=== PATIENT | female | born 1980 | race Caucasian/White ===

== ENCOUNTER 2017-01-04 17:30 | Emergency (ER) | payer OTHER ==
[2017-01-04 17:56] VITALS: O2SAT 100
--- NOTE | 2017-01-04 19:21 | C.PDOC ---
History Of Present Illness A 36 y/o female presents to the ER c/o bruising of the bilateral thighs and back for a couple days. Pt notes it as a dull aching discomfort that is 3/10. Bruising is on the back and is larger on the right thigh. Pt denies trauma, fever, chills, nausea, vomiting, or any other complaints. Pt denies the use of anticoagulants. Time Seen by Provider: 01/04/17 19:20 Chief Complaint (Nursing): Abnormal Skin Integrity History Per: Patient History/Exam Limitations: no limitations Onset/Duration Of Symptoms: Days Current Symptoms Are (Timing): Still Present Location Of Injury: Right: Thigh (Bruising), Left: Thigh, Posterior: Back ( Bruising) Quality Of Symptoms: Other (Dull aching discomfort) Severity: Mild Pain Scale Rating Of: 3 Recent travel outside of the [place]: No Additional History Per: Patient Past Medical History Reviewed: Historical Data, Nursing Documentation, Vital Signs Vital Signs: Last Vital Signs Temp 98.4 F 01/04/17 17:53 Pulse 66 01/04/17 17:53 Resp 18 01/04/17 17:53 BP 128/72 01/04/17 17:53 Pulse Ox 100 01/04/17 19:44 Family History: States: Unknown Family Hx - Social History Hx Alcohol Use: No Hx Substance Use: No - Immunization History Hx Tetanus Toxoid Vaccination: Yes Hx Influenza Vaccination: No Hx Pneumococcal Vaccination: No Review Of Systems Except As Marked, All Systems Reviewed And Found Negative. Constitutional: Negative for: Fever, Chills, Other (Trauma) Eyes: Negative for: Redness ENT: Negative for: Throat Pain Cardiovascular: Negative for: Chest Pain Respiratory: Negative for: Shortness of Breath Gastrointestinal: Negative for: Nausea, Vomiting Skin: Positive for: Bruising (Bilateral thighs and back) Neurological: Negative for: Weakness Psych: Negative for: Anxiety Physical Exam - Physical Exam Appears: Non-toxic, No Acute Distress Skin: Warm, Dry, Ecchymosis (3X4 cm ecchymosis left thigh. 2X3 cm ecchymosis anterior right thight. Smaller bruising on the back) Head: Atraumatic Eye(s): bilateral: Normal Inspection Oral Mucosa: Moist Throat: No Erythema Neck: Supple Chest: Symmetrical Cardiovascular: Rhythm Regular, No Murmur Respiratory: No Rales, No Rhonchi, No Wheezing Gastrointestinal/Abdominal: Soft, No Tenderness Back: Normal Inspection Extremity: Normal ROM, Other (bruises both thights) Extremity: Bilateral: Normal Color And Temperature, Normal ROM Neurological/Psych: Oriented x3, Normal Speech, Normal Cognition, Other (No focal deficit) Gait: Steady ED Course And Treatment - Laboratory Results Result Diagrams: 01/04/17 19:55 01/04/17 19:55 O2 Sat by Pulse Oximetry: 100 (RA) Pulse Ox Interpretation: Normal Medical Decision Making Medical Decision Making: Upon provider reevaluation patient is feeling better, is medically stable, and requires no further treatment in the ED at this time. Patient will be discharged home with. Counseling was provided and all questions were answered regarding diagnosis and need for follow up with the referred clinic. There is agreement to discharge plan. Return if symptoms persist or worsen. Disposition Counseled Patient/Family Regarding: Studies Performed, Diagnosis, Need For Followup - Disposition Referrals: [facility] at [facility] [Outside] [facility] [Outside] Disposition: HOME/ ROUTINE Disposition Time: 19:21 Condition: FAIR Additional Instructions: Please return if symptoms recur Instructions: Contusion in Adults (DC) Print Language: TONGAN - Clinical Impression Clinical Impression: Ecchymosis - Scribe Statement The provider has reviewed the documentation as recorded by the Scribnitesh gregg All medical record entries made by the Austinibnitesh were at my direction and personally dictated by me. I have reviewed the chart and agree that the record accurately reflects my personal performance of the history, physical exam, medical decision making, and the department course for this patient. I have also personally directed, reviewed, and agree with the discharge instructions and disposition.
[2017-01-04 19:59] LABS: BASO # 0.1 K/uL (0.0-0.2); BASO % 0.6 % (0.0-2.0); EOS # 0.2 K/uL (0.0-0.7); EOS % 2.4 % (0.0-4.0); HEMATOCRIT 40.4 % (34.0-47.0); LYMPH # 2.5 K/uL (1.0-4.3); LYMPH % 25.7 % (20.0-40.0); MEAN CELL VOLUME 95.7 fL (81.0-99.0); MEAN CORPUSCULAR HGB CONC 33.4 g/dL (33.0-37.0); MEAN PLATELET VOLUME 7.6 fL (7.2-11.7); MONO # 0.8 K/uL (0.0-0.8); MONO % 7.8 % (0.0-10.0); RED CELL DISTRIBUTION WIDTH 13.1 % (11.5-14.5); WHITE BLOOD COUNT 9.7 K/uL (4.8-10.8)
[2017-01-04 20:08] LABS: CHLORIDE 101 mmol/L (98-107); POTASSIUM 3.9 mmol/L (3.6-5.2); SODIUM 139 mmol/L (132-148)
[2017-01-04 20:10] LABS: ALB/GLOB RATIO 1.3 (1.0-2.1); AST/SGOT 23 U/L (14-36); BILIRUBIN,TOTAL 0.6 mg/dL (0.2-1.3); CARBON DIOXIDE 26 mmol/L (22-30); GFR AFRICAN-AMERICAN > 60; TOTAL PROTEIN 7.9 g/dL (6.3-8.3)
[2017-01-04 20:11] LABS: ALKALINE PHOSPHATASE 61 U/L (38-126); ALT/SGPT 27 U/L (9-52); BLOOD UREA NITROGEN 10 mg/dL (7-17); CALCIUM 8.8 mg/dl (8.6-10.4); GLUCOSE,RANDOM 101 mg/dL (65-105)
[2017-01-04 21:06] VITALS: BP 111/75; PULSE 76; RESP 20; TEMP 99
== END 2017-01-04 21:24 | disposition home or self-care (01) ==
LOC: C.ER 17:30
DX: R23.3 Spontaneous ecchymoses (principal)

== ENCOUNTER 2017-03-07 06:00 | Emergency (ER) | payer OTHER ==
[2017-03-07 06:22] VITALS: O2SAT 100
[2017-03-07 07:14] LABS: HCG,QUALITATIVE URINE NEGATIVE (NEGATIVE)
[2017-03-07 07:16] LABS: SQUAMOUS EPITHIAL 2 /hpf (0-5); URINE BACTERIA RARE (<OCC); URINE BILIRUBIN NEGATIVE (NEGATIVE); URINE BLOOD 1+ (NEGATIVE); URINE CLARITY Clear (Clear); URINE COLOR Colorless (YELLOW); URINE GLUCOSE (UA) NORMAL (Normal); URINE LEUKOCYTE ESTERASE 1+ Leu/uL (Negative); URINE NITRATE NEGATIVE (NEGATIVE); URINE PROTEIN NEGATIVE (NEGATIVE); URINE UROBILINOGEN NORMAL mg/dL (0.2-1.0)
[2017-03-07] MEDS ORDERED: Sodium Chloride 0.9% 1,000 ML IV ONE (07:19)
[2017-03-07] MEDS ORDERED: Sodium Chloride 0.9% 1,000 ML ONE (07:44)
[2017-03-07 07:55] LABS: BASO % 0.6 % (0.0-2.0); EOS # 0.2 K/uL (0.0-0.7); EOS % 2.6 % (0.0-4.0); HEMOGLOBIN 12.8 g/dL (11.0-16.0); LYMPH % 25.4 % (20.0-40.0); MEAN CELL VOLUME 96.3 fL (81.0-99.0); MEAN CORPUSCULAR HEMOGLOBIN 31.4 pg (27.0-31.0); MEAN CORPUSCULAR HGB CONC 32.6 g/dL (33.0-37.0); MEAN PLATELET VOLUME 7.9 fL (7.2-11.7); MONO # 0.6 K/uL (0.0-0.8); MONO % 7.8 % (0.0-10.0); NEUT % 63.6 % (50.0-75.0); RBC 4.07 Mil/uL (3.80-5.20); RED CELL DISTRIBUTION WIDTH 13.5 % (11.5-14.5); WHITE BLOOD COUNT 7.8 K/uL (4.8-10.8)
[2017-03-07 08:02] LABS: ALBUMIN 3.5 g/dL (3.5-5.0)
[2017-03-07 08:05] LABS: ALB/GLOB RATIO 1.1 (1.0-2.1); AST/SGOT 21 U/L (14-36); GFR AFRICAN-AMERICAN > 60; GFR NON-AFRICAN AMERICAN > 60
[2017-03-07 08:06] LABS: ALT/SGPT 25 U/L (9-52); BLOOD UREA NITROGEN 12 mg/dL (7-17); CALCIUM 8.6 mg/dl (8.6-10.4); LIPASE 91 U/L (23-300)
[2017-03-07] MEDS ORDERED: Morphine 4 MG/ML VIAL ONE (09:01)
--- NOTE | 2017-03-07 09:23 | C.PDOC ---
History Of Present Illness 37 y/o female presents to the ED for evaluation RUQ abdominal pain and right flank pain for the last 6 days. (+) dysuria (+) urinary frequency (+) vomiting yesterday. Otherwise, denies any fever, diarrhea, or any other associated symptoms at this time. Time Seen by Provider: 03/07/17 06:54 Chief Complaint (Nursing): Abdominal Pain History Per: Patient History/Exam Limitations: language barrier (histology technologist used) Onset/Duration Of Symptoms: Days (6) Current Symptoms Are (Timing): Still Present Location Of Pain/Discomfort: RUQ Radiation Of Pain To:: Back, Flank (right) Quality Of Discomfort: "Pain" Associated Symptoms: Vomiting. denies: Fever, Chills, Diarrhea, Loss Of Appetite, Chest Pain, Constipation, Urinary Symptoms Exacerbating Factors: None Alleviating Factors: None Recent travel outside of the [place]: No Additional History Per: Patient Abnormal Vaginal Bleeding: No Past Medical History Reviewed: Historical Data, Nursing Documentation, Vital Signs Vital Signs: Last Vital Signs Temp 98.0 F 03/07/17 09:00 Pulse 65 03/07/17 09:00 Resp 20 03/07/17 09:00 BP 114/76 03/07/17 09:00 Pulse Ox 100 03/07/17 09:28 Family History: States: Unknown Family Hx - Social History Hx Alcohol Use: No Hx Substance Use: No - Immunization History Hx Tetanus Toxoid Vaccination: Yes Hx Influenza Vaccination: No Hx Pneumococcal Vaccination: No Review Of Systems Except As Marked, All Systems Reviewed And Found Negative. Constitutional: Negative for: Fever, Chills Cardiovascular: Negative for: Chest Pain, Palpitations Gastrointestinal: Positive for: Vomiting, Abdominal Pain. Negative for: Diarrhea, Constipation Genitourinary: Negative for: Dysuria, Frequency, Hematuria Skin: Negative for: Rash Physical Exam - Physical Exam Appears: Non-toxic, No Acute Distress Skin: Normal Color, Warm, Dry Head: Atraumatic, Normacephalic Eye(s): bilateral: Normal Inspection, EOMI Nose: Normal Oral Mucosa: Moist Neck: Normal ROM, Supple Chest: Symmetrical Cardiovascular: Rhythm Regular, No Murmur Respiratory: Normal Breath Sounds, No Rales, No Rhonchi, No Wheezing Gastrointestinal/Abdominal: Soft, Tenderness (RUQ), No Guarding, No Rebound Back: CVA Tenderness (right), No Vertebral Tenderness, No Paraspinal Tenderness Extremity: Bilateral: Atraumatic, Normal ROM Neurological/Psych: Oriented x3, Normal Speech ED Course And Treatment - Laboratory Results Result Diagrams: 03/07/17 07:52 03/07/17 07:52 O2 Sat by Pulse Oximetry: 100 (on RA) Pulse Ox Interpretation: Normal Progress Note: Blood work, urinalysis, Abd & pelvis CT scan ordered and reviewed. Patient was treated with Toradol, Pepcid, Zofran, and IV fluids. On re -eval, pt states pain improved minimally. Morphine was ordered. On re- evaluation, Patient is resting comfortably, abdomen remains soft, and patient is tolerating PO. Instructed to return to ER if symtpoms persist or worsen. Disposition - Disposition Referrals: [facility] at [facility] [Outside] Disposition: HOME/ ROUTINE Disposition Time: 10:35 Condition: STABLE Additional Instructions: Vaya a sanders mdico o la clnica en 2-5 amezquita sin falta, para mas evaluacin. [place] los medicamentos eugenie indicado. Volver a la folrentin de emergencia en cualquier momento si los sntomas persisten o empeoran. Prescriptions: Nitrofurantoin Macrocrystals [Macrobid] 1 cap PO BID #14 cap Instructions: Urinary Tract Infection in Women (ED) Print Language: TURKMEN - Clinical Impression Clinical Impression: UTI (urinary tract infection) - PA / AMBULETTE DRIVER / Resident Statement MD/DO has reviewed & agrees with the documentation as recorded. - Scribe Statement The provider has reviewed the documentation as recorded by the Zelalem Crawford All medical record entries made by the Austinibnitesh were at my direction and personally dictated by me. I have reviewed the chart and agree that the record accurately reflects my personal performance of the history, physical exam, medical decision making, and the department course for this patient. I have also personally directed, reviewed, and agree with the discharge instructions and disposition.
--- NOTE | 2017-03-07 09:55 | CT ---
PROCEDURE: CT Abdomen and Pelvis without intravenous contrast HISTORY: pain, right flank pain COMPARISON: None. TECHNIQUE: Axial and reformatted coronal and sagittal CT images of the abdomen and pelvis were obtained without IV or oral contrast administration.. Contrast Dose: 0 Radiation dose: Total exam DLP = 249.92 mGy-cm. This CT exam was performed using one or more of the following dose reduction techniques: Automated exposure control, adjustment of the mA and/or kV according to patient size, and/or use of iterative reconstruction technique. FINDINGS: LOWER THORAX: Unremarkable. LIVER: Unremarkable. No gross lesion or ductal dilatation. GALLBLADDER AND BILE DUCTS: Unremarkable. PANCREAS: Unremarkable. No gross lesion or ductal dilatation. SPLEEN: Unremarkable. ADRENALS: Unremarkable. No mass. KIDNEYS AND URETERS: Mild bilateral hydronephrosis more prominent on the right side without evidence of obstructing stone. The right ureter is mildly dilated which could be due to infectious process or recently passed stone. VASCULATURE: Unremarkable. No aortic aneurysm. BOWEL: Unremarkable. No obstruction. No gross mural thickening. APPENDIX: No evidence of appendicitis. PERITONEUM: Unremarkable. No free fluid. No free air. LYMPH NODES: Unremarkable. No enlarged lymph nodes. BLADDER: The urinary bladder is mildly distended. REPRODUCTIVE: Unremarkable. BONES: No acute fracture. OTHER FINDINGS: None. IMPRESSION: Mildly dilated collecting system of both kidneys right more than left without evidence of obstructing stone. Correlate clinically for infectious process. Distended urinary bladder. No evidence of cholecystitis pancreatitis or appendicitis.
[2017-03-07 11:37] VITALS: BP 102/68; PULSE 61; RESP 18; TEMP 97.5
== END 2017-03-07 11:30 | disposition home or self-care (01) ==
LOC: C.ER 06:00
DX: N39.0 Urinary tract infection, site not specified (principal)
CPT/HCPCS: 74176; 80053; 81001; 83690; 84703; 85025; 87086; 87181; 96361; 96374; 96375; 99285; J1885; J2270; J2405; J7040

== ENCOUNTER 2017-08-19 22:32 | Emergency (ER) | payer SELFPAY ==
[2017-08-19 22:44] VITALS: O2SAT 100
[2017-08-19] MEDS ORDERED: Naproxen 550 mg Tab PO STA (22:55)
[2017-08-19] MEDS ORDERED: Naproxen 550 mg Tab PO ONE (23:01)
--- NOTE | 2017-08-19 23:36 | C.PDOC ---
History Of Present Illness 37 y/o female presents to the ED with a complaint of right lateral lower rib pain for the last 2 days. Patient reports pain worsens with palpation and deep breaths. She denies cough, fever, abdominal pain, trauma/falls, or rashes. Time Seen by Provider: 08/19/17 22:47 Chief Complaint (Nursing): Chest Pain History Per: Patient History/Exam Limitations: no limitations Onset/Duration Of Symptoms: Days (2 days ) Current Symptoms Are (Timing): Still Present Severity: Mild Exacerbating Factors: Turning, Movement, Deep Breathing Recent travel outside of the [place]: No Past Medical History Reviewed: Historical Data, Nursing Documentation, Vital Signs Vital Signs: Last Vital Signs Temp 98 F 08/19/17 23:58 Pulse 72 08/19/17 23:58 Resp 18 08/19/17 23:58 BP 116/68 08/19/17 23:58 Pulse Ox 100 08/20/17 01:11 - Medical History PMH: No Chronic Diseases Surgical History: No Surg Hx Family History: States: No Known Family Hx - Social History Hx Alcohol Use: No Hx Substance Use: No - Immunization History Hx Tetanus Toxoid Vaccination: Yes Hx Influenza Vaccination: No Hx Pneumococcal Vaccination: No Review Of Systems Except As Marked, All Systems Reviewed And Found Negative. Constitutional: Negative for: Fever, Chills Cardiovascular: Negative for: Chest Pain, Palpitations Respiratory: Negative for: Cough, Shortness of Breath Gastrointestinal: Positive for: Other (right lateral lower rib pain ). Negative for: Nausea, Vomiting, Abdominal Pain, Diarrhea Skin: Negative for: Rash Physical Exam - Physical Exam Appears: Well, Non-toxic, In Acute Distress (in mild pain) Skin: Normal Color, Warm, Dry, No Rash Head: Normacephalic Eye(s): bilateral: Normal Inspection Oral Mucosa: Moist Chest: No Subcutaneous Emphysema, Other (to palpation along right lateral lower ribs (ribs 10-12)) Cardiovascular: Rhythm Regular Respiratory: Normal Breath Sounds, No Rales, No Rhonchi, No Wheezing, Other ( speaking in full sentences) Gastrointestinal/Abdominal: Bowel Sounds, Soft, No Tenderness (to palpation along right lateral lower ribs (ribs 10-12)), Other Neurological/Psych: Oriented x3 ED Course And Treatment O2 Sat by Pulse Oximetry: 100 (room air) Pulse Ox Interpretation: Normal - Other Rad Ribs bilateral X-Ray: Interpreted by Me, Viewed By Me Interpretation: No fractures or PTX. No infiltrates. Progress Note: Patient given PO Naprosyn and then PO tylenol. Upreg POC done and was (-). Ribs series ordered and reviewed. Reevaluation Time: 23:59 Reassessment Condition: Improved (Patient reassessed, is resting comfortably and states her pain has improved. CXR/ribs series normal. Patient given Rxs for naprosyn and flexeril, and she was instructed to follow up with PMD/clinic in 1-2 days. She understands she should return to ED if symptoms worsen.) Disposition Counseled Patient/Family Regarding: Studies Performed, Diagnosis, Need For Followup, Rx Given - Disposition Referrals: [facility] at [facility] [Outside] Disposition: HOME/ ROUTINE Disposition Time: 00:00 Condition: STABLE Additional Instructions: EGUIMIENTO CON PEREZ MDICO / CLNICA EN 1-2 DE LEON USE MEDICAMENTOS SEGN SEA NECESARIO REGRESE AL ERENDIRA DE EMERGENCIA SI LOS SNTOMAS EMPEORAN Prescriptions: Cyclobenzaprine [Cyclobenzaprine HCl] 10 mg PO BID PRN #15 tab PRN Reason: Muscle Spasm Naproxen [Naprosyn] 1 tab PO BID PRN #25 tab PRN Reason: Pain Instructions: Costochondritis (ED) Forms: [facility] (Belarusian), Work Excuse Print Language: ETHIOPIAN - POA Present On Arrival: None - Clinical Impression Clinical Impression: Costochondritis, acute - Scribe Statement The provider has reviewed the documentation as recorded by the Scribnitesh Molina All medical record entries made by the Scribe were at my direction and personally dictated by me. I have reviewed the chart and agree that the record accurately reflects my personal performance of the history, physical exam, medical decision making, and the department course for this patient. I have also personally directed, reviewed, and agree with the discharge instructions and disposition.
[2017-08-19 23:59] VITALS: BP 116/68; PULSE 72; RESP 18; TEMP 98
--- NOTE | 2017-08-20 08:28 | RAD ---
PROCEDURE: Radiographs of the chest and bilateral ribs HISTORY: RIGHT SIDED LOWER RIB PAIN COMPARISON: 02/05/2013 TECHNIQUE: Frontal radiograph of the chest and multiple oblique radiographs of the bilateral ribs were obtained. FINDINGS: RIGHT RIBS: No fracture or focal lesion visualized. LEFT RIBS: No fracture or focal lesion visualized. LUNGS: Clear. PLEURA: No pneumothorax or pleural fluid. CARDIOVASCULAR: Normal sized heart. No pulmonary vascular congestion. OTHER FINDINGS: None. IMPRESSION: Unremarkable radiographs of the chest and bilateral ribs. No rib fracture.
== END 2017-08-19 23:59 | disposition home or self-care (01) ==
LOC: C.ER 22:32
DX: M94.0 Chondrocostal junction syndrome [Tietze] (principal)